=== PATIENT | female | born 1985 | race Caucasian/White ===

== ENCOUNTER → 2019-07-29 16:58 | Outpatient (CLI) | payer OTHER, SELFPAY ==
[2019-07-29 17:21] LABS: Basophils # 0.1 K/mm3 (0-0.2); Basophils % 0.5 % (0.1-2.0); Eosinophils # 0.1 K/mm3 (0.0-0.4); Eosinophils % 0.4 % (0.1-12.0); Hematocrit 51.7 % (37.0-47.0); Hemoglobin 16.7 g/dL (12.2-16.2); Lymphocytes # 3.2 K/mm3 (0.7-4.5); Lymphocytes % 28.6 % (10-50); Mean Corpuscular HGB Conc 32.3 g/dL (31.8-35.4); Mean Corpuscular Hemoglobin 28.3 pg (27.0-31.2); Mean Corpuscular Volume 87.4 fl (81-99); Mean Platelet Volume 7.8 fl (7.4-10.4); Monocytes # 0.7 K/mm3 (0.1-1.0); Monocytes % 6.4 % (1.7-9.3); Neutrophils # 7.2 K/mm3 (1.8-7.8); Platelet Count 268 K/mm3 (142-424); Red Blood Count 5.91 M/mm3 (4.20-5.40); Red Cell Distribution Width 14.6 % (11.5-17.5); White Blood Count 11.3 K/mm3 (4.8-10.8)
[2019-07-29 17:34] LABS: Alanine Aminotransferase 27 U/L (12-78); Albumin Level 4.3 g/dl (3.5-5.0); Albumin/Globulin Ratio 1.4 (1.1-1.8); Alkaline Phosphatase 88 U/L (38-126); Anion Gap 12.2 mEq/L (5-15); Aspartate Amino Transferase 29 U/L (14-36); Bilirubin,Total 0.4 mg/dl (0.2-1.3); Blood Urea Nitrogen 18 mg/dl (7-17); Calcium 10.1 mg/dl (8.4-10.2); Carbon Dioxide 28 mmol/L (22.0-30.0); Chloride 101 mmol/L (98-107); Chol/HDL Ratio 5.7 (1-3.5); Cholesterol 183 mg/dl (140-200); Estimated Glomerular Filt Rate 83 ml/min (>60); GFR (African American) 100 ML/MIN (>60); Glucose 95 mg/dl (74-100); HDL Cholesterol 32 mg/dl (40-60); Potassium 4.2 mmoL/L (3.5-5.1); Sodium 137 mmol/L (136-145); Total Protein,Serum 7.3 g/dl (6.3-8.2); Triglycerides 298 mg/dl (30-150); VLDL Cholesterol 60 mg/dL (0-40)
[2019-07-29 17:45] LABS: Direct LDL Cholesterol 115.47 mg/dL (100-129)
[2019-07-29 17:51] LABS: Free T4 (Free Thyroxine) 1.34 ng/dl (0.78-2.19)
[2019-07-29 18:05] LABS: Thyroid Stimulating Hormone 3.33 uIU/mL (0.465-4.68)
[2019-07-31 11:25] LABS: Vitamin D 25 Hydroxy 12.5 ng/mL (30.0-100.0)
== END ==
LOC: LAB.DROPOF 16:59
PROVIDERS: Visit Provider Emergency Medicine
DX: R51 Headache (principal); E55.9 Vitamin D deficiency, unspecified
CPT/HCPCS: 80053; 80061; 82652; 84439; 84443; 85025

== ENCOUNTER → 2020-08-12 17:12 | Outpatient (CLI) | payer OTHER, SELFPAY ==
[2020-08-12 17:33] LABS: Alanine Aminotransferase 19 U/L (12-78); Albumin Level 4.2 g/dl (3.5-5.0); Albumin/Globulin Ratio 1.4 (1.1-1.8); Alkaline Phosphatase 76 U/L (38-126); Anion Gap 11.9 mEq/L (5-15); Aspartate Amino Transferase 28 U/L (14-36); Basophils # 0.1 K/mm3 (0-0.2); Basophils % 0.8 % (0.1-2.0); Bilirubin,Total 0.5 mg/dl (0.2-1.3); Blood Urea Nitrogen 6 mg/dl (7-17); Calcium 9.7 mg/dl (8.4-10.2); Carbon Dioxide 26 mmol/L (22.0-30.0); Chloride 106 mmol/L (98-107); Chol/HDL Ratio 4.5 (1-3.5); Cholesterol 188 mg/dl (140-200); Eosinophils # 0.1 K/mm3 (0.0-0.4); Eosinophils % 1.3 % (0.1-12.0); Estimated Glomerular Filt Rate 95 ml/min (>60); GFR (African American) 115 ML/MIN (>60); Glucose 89 mg/dl (74-100); HDL Cholesterol 42 mg/dl (40-60); Hemoglobin 15.3 g/dL (12.2-16.2); Lymphocytes # 2.7 K/mm3 (0.7-4.5); Lymphocytes % 27.6 % (10-50); Mean Corpuscular HGB Conc 33.3 g/dL (31.8-35.4); Mean Corpuscular Hemoglobin 30.8 pg (27.0-31.2); Mean Corpuscular Volume 92.6 fl (81-99); Mean Platelet Volume 8.5 fl (7.4-10.4); Monocytes # 0.6 K/mm3 (0.1-1.0); Monocytes % 5.7 % (1.7-9.3); Neutrophils # 6.4 K/mm3 (1.8-7.8); Neutrophils % 64.6 % (37.0-80.0); Platelet Count 260 K/mm3 (142-424); Potassium 4.9 mmoL/L (3.5-5.1); Red Blood Count 4.97 M/mm3 (4.20-5.40); Sodium 139 mmol/L (136-145); Total Protein,Serum 7.2 g/dl (6.3-8.2); Triglycerides 197 mg/dl (30-150); VLDL Cholesterol 39 mg/dL (0-40); White Blood Count 9.9 K/mm3 (4.8-10.8)
[2020-08-12 17:50] LABS: Free T4 (Free Thyroxine) 1.31 ng/dl (0.78-2.19)
[2020-08-12 18:00] LABS: 25-OH Vitamin D, Total 19.7 ng/mL (30-100)
[2020-08-12 18:03] LABS: Thyroid Stimulating Hormone 1.46 uIU/mL (0.465-4.68)
== END ==
LOC: LAB.DROPOF 17:12
PROVIDERS: Visit Provider Emergency Medicine
DX: E66.9 Obesity, unspecified (principal); E55.9 Vitamin D deficiency, unspecified
CPT/HCPCS: 80053; 80061; 82306; 84439; 84443; 85025

== ENCOUNTER → 2020-09-06 10:15 | Outpatient (POV) | payer OTHER, SELFPAY | PROVIDERS: Visit Provider Dermatology | DX: Z00.00 Encounter for general adult medical examination without abnormal findings (principal) ==

== ENCOUNTER → 2020-12-14 14:07 | Outpatient (CLI) | payer OTHER, SELFPAY ==
[2020-12-14 15:33] LABS: HCG,Quantitative 3531 mIU/ml (0-5.42)
== END ==
PROVIDERS: Visit Provider Emergency Medicine
DX: Z34.90 Encounter for supervision of normal pregnancy, unspecified, unspecified trimester (principal); R63.5 Abnormal weight gain
CPT/HCPCS: 84702

== ENCOUNTER → 2022-04-30 22:34 | Outpatient (CLI) | payer BC, SELFPAY | PROVIDERS: Visit Provider Family Medicine | DX: U07.1 COVID-19 (principal); R51.9 Headache, unspecified; R05.9 Cough, unspecified | CPT/HCPCS: C9803; U0003; U0005 ==

== ENCOUNTER → 2022-08-10 23:39 | Outpatient (CLI) | payer BC, SELFPAY ==
[2022-08-10 18:48] LABS: Basophils # 0.1 K/mm3 (0-0.2); Basophils % 1.1 % (0.1-2.0); Eosinophils # 0.1 K/mm3 (0.0-0.4); Eosinophils % 1.3 % (0.1-12.0); Hemoglobin 14.8 g/dL (12.2-16.2); Lymphocytes # 2.1 K/mm3 (0.7-4.5); Lymphocytes % 24.7 % (10-50); Mean Corpuscular HGB Conc 32.2 g/dL (31.8-35.4); Mean Corpuscular Hemoglobin 29.3 pg (27.0-31.2); Mean Corpuscular Volume 91.1 fl (81-99); Mean Platelet Volume 9.4 fl (7.4-10.4); Monocytes # 0.6 K/mm3 (0.1-1.0); Monocytes % 7.2 % (1.7-9.3); Neutrophils # 5.6 K/mm3 (1.8-7.8); Neutrophils % 65.7 % (37.0-80.0); Platelet Count 271 K/mm3 (142-424); Red Blood Count 5.05 M/mm3 (4.20-5.40); Red Cell Distribution Width 14.5 % (11.5-17.5); White Blood Count 8.5 K/mm3 (4.8-10.8)
[2022-08-10 19:03] LABS: Alanine Aminotransferase 19 U/L (12-78); Albumin Level 3.9 g/dl (3.5-5.0); Albumin/Globulin Ratio 1.4 (1.1-1.8); Alkaline Phosphatase 92 U/L (38-126); Anion Gap 9.3 mEq/L (5-15); Aspartate Amino Transferase 23 U/L (14-36); Bilirubin,Total 0.7 mg/dl (0.2-1.3); Blood Urea Nitrogen 10 mg/dl (7-17); Calcium 8.5 mg/dl (8.4-10.2); Carbon Dioxide 27 mmol/L (22.0-30.0); Chloride 103 mmol/L (98-107); Cholesterol 159 mg/dl (140-200); Estimated Glomerular Filt Rate 94 ml/min (>60); GFR (African American) 114 ML/MIN (>60); Globulin 2.7 g/dL (1.3-3.2); Glucose 87 mg/dl (74-100); HDL Cholesterol 32 mg/dl (40-60); Potassium 4.3 mmoL/L (3.5-5.1); Sodium 135 mmol/L (136-145); Total Protein,Serum 6.6 g/dl (6.3-8.2); Triglycerides 251 mg/dl (30-150); VLDL Cholesterol 50 mg/dL (0-40)
[2022-08-10 19:10] LABS: Hemoglobin A1C 4.7 % (4.0-6.0)
[2022-08-10 19:13] LABS: 25-OH Vitamin D, Total 13.1 ng/mL (30-100)
[2022-08-10 19:14] LABS: Direct LDL Cholesterol 90.11 mg/dL (100-129)
[2022-08-10 19:33] LABS: Thyroid Stimulating Hormone 1.85 uIU/mL (0.465-4.68)
== END ==
PROVIDERS: PCP Nurse Practitioner Family; Visit Provider Nurse Practitioner Family
DX: I10 Essential (primary) hypertension (principal); R53.83 Other fatigue; E55.9 Vitamin D deficiency, unspecified
CPT/HCPCS: 80053; 80061; 82306; 83036; 84443; 85025

== ENCOUNTER 2023-12-26 09:05 | Outpatient (CLI) | payer BC, SELFPAY ==
[2023-12-26 19:16] LABS: Basophils # 0.1 K/mm3 (0-0.2); Eosinophils # 0.1 K/mm3 (0.0-0.4); Eosinophils % 1.5 % (0.1-12.0); Hematocrit 45.3 % (37.0-47.0); Lymphocytes # 2.2 K/mm3 (0.7-4.5); Lymphocytes % 24.8 % (10-50); Mean Corpuscular HGB Conc 30.9 g/dL (31.8-35.4); Mean Corpuscular Hemoglobin 29.2 pg (27.0-31.2); Mean Corpuscular Volume 94.3 fl (81-99); Monocytes # 0.5 K/mm3 (0.1-1.0); Monocytes % 5.6 % (1.7-9.3); Neutrophils # 6.1 K/mm3 (1.8-7.8); Neutrophils % 67.2 % (37.0-80.0); Platelet Count 244 K/mm3 (142-424); Red Cell Distribution Width 15.6 % (11.5-17.5)
[2023-12-26 19:30] LABS: Alanine Aminotransferase 22 U/L (12-78); Albumin Level 3.4 g/dl (3.5-5.0); Albumin/Globulin Ratio 1.3 (1.1-1.8); Alkaline Phosphatase 81 U/L (38-126); Anion Gap 9.8 mEq/L (5-15); Aspartate Amino Transferase 22 U/L (14-36); Bilirubin,Total 0.5 mg/dl (0.2-1.3); Blood Urea Nitrogen 15 mg/dl (7-17); Calcium 8.6 mg/dl (8.4-10.2); Carbon Dioxide 26 mmol/L (22.0-30.0); Chloride 108 mmol/L (98-107); Chol/HDL Ratio 4.4 (1-3.5); Cholesterol 142 mg/dl (140-200); Estimated Glomerular Filt Rate 94 ml/min (>60); GFR (African American) 113 ML/MIN (>60); Globulin 2.7 g/dL (1.3-3.2); Glucose 77 mg/dl (74-100); HDL Cholesterol 32 mg/dl (40-60); Potassium 3.8 mmoL/L (3.5-5.1); Sodium 140 mmol/L (136-145); Total Protein,Serum 6.1 g/dl (6.3-8.2); Triglycerides 169 mg/dl (30-150); VLDL Cholesterol 34 mg/dL (0-40)
[2023-12-26 19:41] LABS: 25-OH Vitamin D, Total 13.6 ng/mL (30-100)
[2023-12-26 19:43] LABS: Free Thyroxine Index 3.8 ug/dL (5.93-13.13); T4 (Thyroxine) 12.3 ug/dl (5.53-11.0); Triiodothryronine (T3) Uptake 31 % (23.5-40.5)
[2023-12-26 19:45] LABS: Direct LDL Cholesterol 71.33 mg/dL (100-129)
[2023-12-26 19:56] LABS: Thyroid Stimulating Hormone 1.32 uIU/mL (0.465-4.68)
[2023-12-26 20:06] LABS: Thyroid Stimulating Hormone 1.33 uIU/mL (0.465-4.68)
[2023-12-26 21:37] LABS: Hemoglobin A1C 4.9 % (4.0-6.0)
[2023-12-26 22:16] LABS: Vitamin B12 334 pg/mL (239-931)
[2023-12-26 22:25] LABS: Iron 50 ug/dL (37-170)
== END 2023-12-26 23:59 | disposition home or self-care (01) ==
LOC: LAB.DROPOF 12-28 18:50
PROVIDERS: PCP Family Medicine; Visit Provider Family Medicine
DX: R53.83 Other fatigue (principal); E66.01 Morbid (severe) obesity due to excess calories; Z68.44 Body mass index [BMI] 60.0-69.9, adult
CPT/HCPCS: 80050; 80053; 80061; 82306; 82607; 83036; 83540; 84436; 84443; 84479; 85025

== ENCOUNTER 2024-04-20 09:35 | Outpatient (CLI) | payer BC, SELFPAY ==
[2024-04-20 19:29] LABS: Triiodothryronine (T3) Uptake 33 % (23.5-40.5)
[2024-04-20 19:30] LABS: 25-OH Vitamin D, Total 16.4 ng/mL (30-100)
[2024-04-20 19:42] LABS: Thyroid Stimulating Hormone 1.09 uIU/mL (0.465-4.68)
== END 2024-04-20 23:59 | disposition home or self-care (01) ==
LOC: LAB.DROPOF 04-21 15:18
PROVIDERS: PCP Family Medicine; Visit Provider Family Medicine
DX: E55.9 Vitamin D deficiency, unspecified (principal); R79.89 Other specified abnormal findings of blood chemistry
CPT/HCPCS: 82306; 84436; 84443; 84479

== ENCOUNTER 2025-01-14 14:33 | Outpatient (CLI) | payer BC, SELFPAY ==
[2025-01-14 19:24] LABS: Coronavirus 19, PCR Not Detected (NotDetected); Influenza A, PCR Not Detected (NotDetected); Influenza B, PCR Not Detected (NotDetected)
--- OUTSIDE RECORDS SUMMARY | 2025-01-18 09:22 | XMS_ITS | Clinical Summary ---
Author Organization [facility] Address [address] [place] [address] Care Team Providers Care Jewel Bearing Grinder Name Role Phone Jamari Fiore MD Primary Care Provider + [phone] Allergies No known active allergies Medications citalopram (CeleXA) 20 MG tablet Take 1 tablet (20 mg) by mouth 1 (one) time each day. 11/23/2020 Active D3 High Potency 50 MCG (2000 UT) capsule Take by mouth 1 (one) time each day. 01/10/2024 Active dexamethasone (Decadron) 1 MG tablet Take 2 tablets when directed 2 tablet 02/10/2024 Active Active Problems Problem Noted Date Diagnosed Date Chronic hypertension 11/14/2021 Assessment & Plan (01/25/2022 9:58 AM EDT): - blood pressure elevated today - Nifedipine 30 XL q day - not taking consistently. She did take it this morning. Increase to 60 XL q day. Assessment & Plan (11/14/2021 10:48 AM EDT): - blood pressure elevated today - Nifedipine 30 XL q day - not taking consistently. She did take it this morning. Increase to 60 XL q day. Failed induction of labor 08/18/2021 Weight loss counseling, encounter for 08/18/2021 Assessment & Plan (01/25/2022 9:59 AM EDT): - BP more controlled today - continue Nifedipine -pt had 5lb wt loss since last visit - discussed continuing phentermine - she is interested. - phentermine Rx sent - RTC 1 month Assessment & Plan (12/20/2021 2:36 PM EDT): - BP more controlled today - continue Nifedipine - discussed phentermine - she is interested. Discussed dry mouth and heart palpitations as side effect. Discussed 6-8 pound weight loss in 1st month and 1- 2 pounds each additional month. Discussed that it is controlled substance and need for monthly appointment. - phentermine Rx sent - RTC 1 month Assessment & Plan (11/14/2021 10:52 AM EDT): - discussed bariatrics consult - her insurance does not cover - I discussed that the only medication I have prescribed is phentermine and that I cannot prescribe it was her blood pressure as high as it is. - We discussed that if we get it better controlled, we could potentially prescribe phentermine. Assessment & Plan (09/18/2021 1:12 PM EDT): - normal visit - BP normal with Nifedipine - continue Nifed 30 XL q day. She likely has chronic HTN - mood stable - pap done today - counseled about different contraception options - desires Mirena - placed today - RTC as needed Assessment & Plan (08/18/2021 10:09 AM EDT): - normal exam today - incision looks great! - mood stable - RTC in 4 weeks for full exam, pap, and to discuss contraception 37 weeks gestation of 06/29/2021 Assessment & Plan (07/31/2021 9:40 AM EDT): - GBS positive - continue PNV and baby ASA - IOL 08/01 PM Assessment & Plan (07/27/2021 12:36 PM EDT): - labs reviewed, GBS positive - continue PNV and baby ASA - Prelim growth US today: vertex, posterior placenta, EFW 80%, AC 94%, normal AF and dopplers. BPP 12/18 - IOL 08/01 PM - consents signed today - RTC for NST next week Assessment & Plan (07/24/2021 9:56 AM EDT): - labs reviewed, GBS positive - continue PNV and baby ASA - growth US 317 - RTC for 2x weekly NST and routine visit Assessment & Plan (07/20/2021 12:53 PM EST): - GBS today - continue PNV and baby ASA - growth US 317 - RTC for 2x weekly NST and routine visit Assessment & Plan (07/17/2021 9:51 AM EST): - continue PNV and baby ASA - growth US 3/17 - GBS next visit - RTC for 2x weekly NST and routine visit Assessment & Plan (07/13/2021 8:50 AM EST): - growth US 07/27 - continue PNV and baby ASA - GBS at 36 weeks - discussed IOL methods today - RTC for 2x weekly NST and routine visit Assessment & Plan (07/10/2021 9:39 AM EST): - labs reviewed - growth US 17 - continue PNV and baby ASA - GBS at 36 weeks - RTC for 2x weekly NST and routine visit Assessment & Plan (07/06/2021 12:26 PM EST): - labs reviewed - growth US 07/27 - continue PNV and baby ASA - RTC for 2x weekly NST and routine visit Assessment & Plan (07/03/2021 10:22 AM EST): - labs reviewed - next growth US 3/17 - continue PNV and baby ASA - RTC for 2x weekly NSTs and routine visit Assessment & Plan (06/29/2021 1:06 PM EST): - labs reviewed - Growth US today: EFW 65%, AC 74%, normal fluid - repeat growth US in 4 weeks - continue PNV and baby ASA - RTC for 2x weekly NSTs and routine visits Gestational hypertension wit h significant proteinuria, 05/31/2021 Assessment & Plan (08/18/2021 10:08 AM EDT): - MR BP today - discussed to continue to try to take Nifedipine daily Assessment & Plan (07/31/2021 9:39 AM EDT): - normal BP today - continue baby ASA - IOL tomorrow 323 PM Assessment & Plan (07/27/2021 12:36 PM EDT): - MR BP today - IOL 08/01 - Prelim growth US today: vertex, posterior placenta, EFW 80%, AC 94%, normal AF and dopplers. BPP 12/18 - continue baby ASA - RTC next week for NST Assessment & Plan (07/24/2021 9:55 AM EDT): - normal BP today - continue baby ASA - IOL 08/01 Assessment & Plan (07/20/2021 12:52 PM EST): - normal BP today - continue baby ASA - IOL 08/01 Assessment & Plan (07/17/2021 9:50 AM EST): - normal BP today - continue baby ASA - IOL 08/01 Assessment & Plan (07/13/2021 8:49 AM EST): - normal BP today - Continue baby ASA and 2x weekly NSTs - continue q 4 week growth US - IOL 08/01 Assessment & Plan (07/10/2021 9:38 AM EST): - MR BP today, UA negative protein - continue baby ASA - continue q 4 week growth US and 2x weekly NSTs - desires IOL 08/01 38w2d Assessment & Plan (07/06/2021 12:26 PM EST): - normal BP today - continue baby ASA - continue q 4 week growth US and 2x weekly NSTs - will plan for 37-38 week IOL - desires 08/01 - will schedule Assessment & Plan (07/03/2021 10:21 AM EST): - normal BP today - continue baby ASA - continue q 4 week growth US and 2x weekly NSTs - we discussed timing of delivery with GHTN - we discussed that delivery is recommended ~ 37 weeks to decrease maternal morbidity secondary to severe range blood pressures and pre-eclampsia. We discussed that evidence showed that babies do as well at 37 weeks as they do at 39 weeks. We also discussed that IOL could take longer at 37 weeks and that the rate of c/s is increased. She will talk with this weekend and we will discuss delivery timing more next week. Assessment & Plan (06/29/2021 1:04 PM EST): - MR BP with normal repeat - continue baby ASA - continue q 4 week growth US and 2x weekly NSTs Assessment & Plan (06/26/2021 2:02 PM EST): - normal BP today - continue growth US and surveillance Assessment & Plan (05/31/2021 10:08 AM EST): - mild range BP today, no protein in urine - continue baby ASA - q month growth US and NSTs 2x weekly at 32 weeks Advanced maternal age in [facility], unspecified trimester 02/02/2021 Assessment & Plan (07/17/2021 9:50 AM EST): Continue baby ASA and 2x weekly NSTs Assessment & Plan (07/13/2021 8:50 AM EST): - Continue baby ASA and 2x weekly NSTs Assessment & Plan (06/29/2021 1:05 PM EST): - continue growth US and NSTs Assessment & Plan (06/26/2021 2:01 PM EST): Continue baby ASA and 2x weekly NSTs Growth US 06/29 Assessment & Plan (05/31/2021 10:06 AM EST): - continue baby ASA - will start NSTs 2x weekly at 32 weeks - continue growth US Assessment & Plan (03/29/2021 2:05 PM EST): Morbid obesity 01/04/2021 Depression 01/04/2021 Assessment & Plan (11/14/2021 10:50 AM EDT): Psychological condition is worsening. She has an appointment scheduled with her provider that prescribes her medication soon. Rec that she may need dose adjustment vs. Starting prozac again. Would like options for counseling - list of therapy locations provided to patient. We discussed that if she has thoughts of self harm or harm to others, to immediately remove herself from the situation, call 911, call her mother, go to the emergency room, or to call our office. She understands and has no intentions of harm to herself or others at the point. Resolved Problems Problem Noted Date Diagnosed Date Resolved Date 32 weeks gestation of 02/01/2021 06/29/2021 Assessment & Plan (06/29/2021 1:05 PM EST): Assessment & Plan (06/26/2021 2:01 PM EST): Labs reviewed Continue baby ASA and 2x weekly NSTs Growth US 06/29 Continue PNV RTC for US Assessment & Plan (05/31/2021 10:07 AM EST): - Prelim growth US today: vertex, EFW 62%, AC 50%, ELVIRA 14, normal dopplers, BPP 8/8 - labs reviewed - Tdap and Rhogam today - continue baby ASA and PNV - growth US ordered for 1 month - start NSTs at 32 weeks - RTC 3 weeks Assessment & Plan (04/28/2021 11:46 AM EST): - nml yfn US - glucola and CBC today - continue PNV and baby ASA - growth US ordered to complete anatomy - Tdap and Rhogam at next visit - echo 05/16/21 - RTC 4 weeks Assessment & Plan (03/29/2021 2:40 PM EST): - yfn US prelim read normal - will need follow up yfn for heart views - rec wrist bracing at night for hand swelling/carpal tunnel - continue PNV and baby ASA - glucola given for next apt - RTC 4 weeks Assessment & Plan (03/01/2021 10:38 AM EDT): - FTS increased risk of Down Syndrome - NIPT low risk female - continue PNV and baby ASA - schedule anatomy US today - RTC 4 weeks Assessment & Plan (02/01/2021 12:41 PM EDT): - labs reviewed, O negative - GBS bacteruria - s/p treatment - Normal NT today, will do FTS bloodwork. Does desire NIPT - will get prior auth - start Baby ASA for pre-eclampsia prevention - discussed AMA and need for NSTs starting at 32-34 weeks - flu shot today - anatomy US ordered today - RTC 4 weeks Immunizations Immunization Administration Dates Next Due Influenza, injectable, quadr ivalent, preservative free, pediatric 02/01/2021 Rho (D) Immune Globulin 05/31/2021 Tdap 05/31/2021 Social History Tobacco Use Types Packs/Day Years Used Date Smoking Tobacco: Never Smokeless Tobacco: Never Tobacco Cessation:Counseling Given: Not Answered Alcohol Use Standard Drinks/Week Comments Never 0 (1 standard drink = 0.6 oz pur e alcohol) [place] Depression Scale Answer Date Recorded [place] Depression Scale Total 6 09/18/2021 The thought of harming myself has occurred to me . Never 09/18/2021 Comments No Sex and Gender Information Value Date Recorded Sex Assigned at Female 04/28/2021 10:24 AM EST Legal Sex Female 11:04 AM EDT Gender Identity Female 04/28/2021 10:24 AM EST Sexual Orientation Straight 04/28/2021 10 :24 AM EST Last Filed Vital Signs Vital Sign Reading Time Taken Comments Blood Pressure 142/87 02/10/2024 9:32 AM EDT Pulse 88 02/10/2024 9:32 AM EDT Temperature - - Respiratory Rate - - Oxygen Saturation - - Inhaled Oxygen Concentration - - Weight 186 kg (410 lb 0.9 oz) 02/10/2024 9:32 AM EDT Height 175.3 cm (5' 9 ) 02/10/2024 9:32 AM EDT Body Mass Index 60.55 02/10/2024 9:32 AM EDT Plan of Treatment Health Maintenance Due Date Last Done Comments [facility]-Infant/Child/Adol SDOH Screenings 1985 [facility]-Varicella Vaccines (1 of 2 - 13+ 2-dose series) 1998 [facility]- SDOH Screenings 07/31/2003 [facility]-Adult SDOH Screenings 07/31/2003 [facility]-Hepatitis B Vaccines (1 of 3 - 19+ 3-dose series) 2004 HPV Vaccines (1 - 3-dose SCD M series) 2012 [facility]-Depression Screening 09/18/2022 09/18/2021 [id number] Vaccine (2 - season) 2024 07/28/2020 [facility]-Pap Smear 09/18/2024 09/18/2021 [facility]-Influenza Vaccine (#1) 2025 02/01/2021 [facility]-Cervical Cancer Screening 09/18/2026 [facility]-HPV/Cotest 09/18/2026 09/18/2021, 09/18/2021 [facility]-DTaP,Tdap,and Td Vaccine s (2 - Td or Tdap) 05/31/2031 05/31/2021 [facility]-Zoster Vaccines (1 of 2) 07/31/2035 [facility]-HIV Screening Completed 01/04/2021 [facility]-Hepatitis C Screening Completed 01/04/2021 [facility]-Obesity Intervention Completed 02/10/2024 [facility]-HIB Vaccines Aged Out No longer e ligible based on patient's age to complete this topic [facility]-Hepatitis A Vaccines Aged Out No longer eligible based on patient's age to complete this topic [facility]-IPV Vaccines Aged Out No longer e ligible based on patient's age to complete this topic [facility]-Pneumococcal Vaccine: Pediatrics (0 to 5 Years) and At-Risk Patients (6 to 49 Years) Aged Out No longer eligible b ased on patient's age to complete this topic [facility]-Rotavirus Vaccines Aged Out No lo nger eligible based on patient's age to complete this topic Procedures Procedure Name Priority Date/Time Associated Diagnosis Comments PAP TEST - CYTOLOGY Routine 09/18/2021 1 1:31 AM EDT Encounter for gynecological examination without abnormal finding HEPATITIS C ANTIBODY W/REFLEX TO HCV QUANT PCR Routine 01/04/2021 2:27 PM EDT Unsure of LMP (last menstrual period) as reason for ultrasound scan HIV 1/2 ANTIBODY/ANTIGEN SCREEN WITH REFLEX TO HIV I/II DIFFERENTIATION Routine 01/04/2021 2:27 PM EDT Unsure of LMP (last menstrual period) as reason for ultrasound scan from Last 3 Months or Most Recently Relevant to Health Maintenance Results * (ABNORMAL) Pap Smear (09/18/2021 11:31 AM EDT) Case Report Cytology Case: [id number] Authorizing Provider: Karey Gordillo MD Collected: 09/18/2021 1131 Ordering Location: Obstetrics & Gynecology Received: 09/19/2021 0854 First Screen: Ana Loza Rescreen: YOLANDA An Pathologist: Guillermina Mayorga MD Specimen: ThinPrep Pap Test, Liquid-Based Cervical/Vaginal, CERVICAL/VAGINAL 09/22/2021 10:22 AM EDT [facility] Interpretation LOW GRADE SQUAMOUS INTRAEPITHELIAL LESION (LSIL)(A) 09/22/2021 10:22 AM EDT [facility] at 1022 EDT Other Findings Fungal organisms consistent with Meri species. 09/22/2021 10:22 AM EDT [facility] Specimen Adequacy Satisfactory for evaluation; endocervical/arboleda sformation zone component present. Slide imaged by the ThinPrep Imaging system and selected 22 paula reviewed then full manual screening. 09/22/2021 10:22 AM EDT [facility] Cervical cytology is a screening test primarily for squamous cancers and precursors and has associated false negative and positive results. New technologies such as liquid based sampling may decrease but will not eliminate all false negative results. Regular screening and follow-up of unexplained clinical signs and symptoms are recommended to minimize false negative results. Please see the ASCCP website (www.asccp.org)fo r followup recommendations. If HPV testing was requested, correlation with the results is suggested (please call Microbiology at [phone] for results). 09/22/2021 10:22 AM EDT [facility] Menstrual Status Post- 022 10:22 AM EDT [facility] History of Hysterectomy Not Applicable 09/22/2021 10:22 AM EDT [facility] Contraceptive History Not Applicable 09/22/2021 10:22 AM EDT [facility] Screening Type Routine Screen 2021 10:22 AM EDT [facility] High Risk? No 09/22/2021 10:22 AM EDT [facility] HPV Testing Requested? Request HPV Testing Regardless of Pap Test Findings 09/22/2021 10:22 AM EDT [facility] Previous Cancer History No 09/22/2021 10:22 AM EDT [facility] Clinical Information Z01.419 - Encounter for gynecological examination without abnormal finding [ICD-10-CM] 09/22/2021 10:22 AM EDT [facility] Last Menstrual Period 11/09/2020 09/22/2021 10:22 AM EDT [facility] Swab Vaginal and cervical cytologic material / Unknown Non-blood Collection / Unknown 09/18/2021 11:31 AM EDT 09/19/2021 8:54 AM EDT Karey Gordillo MD LAB CYTOLOGY ORDERABLES Final Result Performing Organization Address City/[facility]/ZIP Co de Phone Number [facility] [address] [place] [address] * HIV 1 & 2 Antibody/Antigen Screen (01/04/2021 2:27 PM EDT) HIV 1 & 2 Antibody/Anti gen Screen Nonreactive Nonreactive 01/04/2021 2:27 PM EDT [facility] Blood Venous blood specimen / Unknown 01/04/2021 1:01 PM EDT us Pierce Gates MD LAB BLOOD ORDERABLES Final Resu lt Performing Organization Address City/[facility]/ZIP Co de Phone Number [facility] [address] [place] [address] * Hepatitis C Antibody (01/04/2021 2:27 PM EDT) Hepatitis C Antibody Negative Negative 01/04/2021 2:27 PM EDT [facility] Blood Venous blood specimen / Unknown 01/04/2021 1:01 PM EDT us Pierce Gates MD LAB BLOOD ORDERABLES Final Resu lt [facility] [address] [place] [address] from Last 3 Months or Most Recently Relevant to Health Maintenance Insurance PAUL[employer] Care Teams Jewel Bearing Grinder Relationship Specialty Start Date End Date Jamari Fiore MD [address] [place] [address] PCP - General 05/16/21
== END 2025-01-14 23:59 ==
LOC: LAB.DROPOF 01-18 09:07
PROVIDERS: PCP Family Medicine; Visit Provider Family Medicine
DX: R69 Illness, unspecified (principal)
CPT/HCPCS: 87636

== ENCOUNTER 2025-04-27 14:00 | Emergency (ER) | payer BC, SELFPAY ==
--- OUTSIDE RECORDS SUMMARY | 2024-12-12 04:00 | XMS_ITS ---
Author Organization [facility] Address [address] [place] [address] Phone [phone] Care Team Providers Care Nougat Cutter Machine Name Role Phone Batool Whitley Unavailable [phone] Migration, Provider Unavailable Unavailable REASON FOR VISIT EMR-Alejo Encounters Encounter Location Date Provider Diagnosis [address] [address] 12/12/2024 Provider Migration Plan Of Treatment No Information Progress Notes * BASILIO ROBERTSANAOB:1985 (39 yo F)Acc No.[id number]:12/12/2024 Patient: CELESTINO KELLY :1985 A ge:39 Y S ex:Female Address:[address] [place] [facility] [address] [place], [address] Subjective: * Chief Complaints: * E MR-Alejo * * Date:
--- OUTSIDE RECORDS SUMMARY | 2024-12-13 04:00 | XMS_ITS ---
Author Organization [facility] Address [address] [place] [address] Phone [phone] Care Team Providers Care Tire Fabric Impregnating Range Tender Name Role Phone Batool Whitley Unavailable [phone] Migration, Provider Unavailable Unavailable REASON FOR VISIT EMR-[facility] Medications Medication SIG (Take, Route, Frequency, Duration) Notes Start Date End Date Status Citalopram Hydrobromide 10 MG Tablet Oral Active VITAMIN D2 1,250 MCG (50,000 UNIT) CAPSULE *Reorder from [facility] for eRx and Interaction Alerts* Active Azithromycin 250 MG Tablet Oral Active Ondansetron 4 MG Tablet Disintegrating Oral Active Citalopram Hydrobromide 20 MG Tablet Oral Active buPROPion HCl 75 MG Tablet Oral Active BROMPHENIRAMINE-PSEUDO EPHEDRINE-DM 2 MG-30 MG-10 MG/5 ML ORAL SYRUP *Reorder from [facility] for eRx and Interaction Alerts* Active predniSONE 20 MG Tablet Oral Active Ventolin HFA 108 (90 Base) MCG/ACT Aerosol Solution Inhalation Active Social History Social History Additional Details Category Social Info Options Details Migrated Social History Migrated Social History Tobacco Years: Former smoker 03/15/2020,Smoking Status: 5 03/15/2020 Encounters Encounter Location Date Provider Diagnosis [facility] [address] [place] [address] 12/13/2024 Provider Migration Plan Of Treatment No Information Progress Notes * ROBERTSBASILIOANAOB:1985 (39 yo F)Acc No.[id number]:12/13/2024 Patient: CELESTINO KELLY :1985 A ge:39 Y S ex:Female Address:[address] [place] [address] [place], [address] Subjective: * Chief Complaints: * E MR-Alejo * Social History: M igrated Social History: M igrated Social History: Tobacco Years: Former smoker 03/15/2020,Smoking Status: 5 03/15/2020. * Medications: T akingCitalopram Hydrobromide 10 MG Tablet Oral buPROPion HCl 75 MG Tablet Oral predniSONE 20 MG Tablet Oral Ventolin HFA 108 (90 Base) MCG/ACT Aerosol Solution Inhalation [id number] 2 MG-30 MG-10 MG/5 ML ORAL SYRUP , Notes to Pharmacist: *Reorder from [facility] for eRx and Interaction Alerts*Azithromycin 250 MG Tablet Oral Citalopram Hydrobromide 20 MG Tablet Oral Ondansetron 4 MG Tablet Disintegrating Oral VITAMIN D2 1,250 MCG (50,000 UNIT) CAPSULE , Notes to Pharmacist: *Reorder from [facility] for eRx and Interaction Alerts*Taking Citalopram Hydrobromide 10 MG Tablet Oral Taking buPROPion HCl 75 MG Tablet Oral Taking predniSONE 20 MG Tablet Oral Taking Ventolin HFA 108 (90 Base) MCG/ACT Aerosol Solution Inhalation Taking [id number] 2 MG-30 MG-10 MG/5 ML ORAL SYRUP , Notes to Pharmacist: *Reorder from [facility] for eRx and Interaction Alerts*Taking Azithromycin 250 MG Tablet Oral Taking Citalopram Hydrobromide 20 MG Tablet Oral Taking Ondansetron 4 MG Tablet Disintegrating Oral Taking VITAMIN D2 1,250 MCG (50,000 UNIT) CAPSULE , Notes to Pharmacist: *Reorder from [facility] for eRx and Interaction Alerts* * * Date:
[2025-04-27 14:08] VITALS: BP 177/106; PULSE 91; O2SAT 92
--- OUTSIDE RECORDS SUMMARY | 2025-04-27 14:09 | XMS_ITS | Patient Health Record ---
Author Organization [facility] Address [address] [place] [address] Phone [phone] Care Team Providers Care Hand Zipper Trimmer Name Role Phone Batool Whitley Unavailable [phone] Migration, Provider Unavailable Unavailable Reason For Referral No Information Medications Medication SIG (Take, Route, Frequency, Duration) Notes Start Date End Date Status Citalopram Hydrobromide 10 MG Tablet Oral Active buPROPion HCl 75 MG Tablet Oral Active BROMPHENIRAMINE-PSEUDO EPHEDRINE-DM 2 MG-30 MG-10 MG/5 ML ORAL SYRUP *Reorder from [employer] for eRx and Interaction Alerts* Active VITAMIN D2 1,250 MCG (50,000 UNIT) CAPSULE *Reorder from [employer] for eRx and Interaction Alerts* Active predniSONE 20 MG Tablet Oral Active Ventolin HFA 108 (90 Base) MCG/ACT Aerosol Solution Inhalation Active Azithromycin 250 MG Tablet Oral Active Ondansetron 4 MG Tablet Disintegrating Oral Active Citalopram Hydrobromide 20 MG Tablet Oral Active Social History Social History Additional Details Category Social Info Options Details Migrated Social History Migrated Social History Tobacco Years: Former smoker 03/15/2020,Smoking Status: 5 03/15/2020 Problems Problem Type SNOMED Code ICD Code Onset Dates Problem Status W/U Status Risk Notes Problem History of suspected exposure to biological agent ([id number] ) Encounter for observation for suspected exposure to other biological agents ruled out (Z03.818) 0 Active confirmed Encounters Encounter Location Date Provider Diagnosis [facility] [address] [place] [address] 12/12/2024 Provider Migration [address] [address] 12/13/2024 Provider Migration Plan Of Treatment No Information Insurance Providers Payer Name Payer Address Payer Phone Subscriber Number Group Number Insured Name Patient Relationship to Insured Coverage Start Date Coverage End Date [facility] [address] [place] [address] [id number] CELESTINO ROBERTS Self - patient is the insured
--- OUTSIDE RECORDS SUMMARY | 2025-04-27 14:10 | XMS_ITS | Clinical Summary ---
Author Organization [facility] Address [address] [place] [address] Care Team Providers Care [employer] Salesperson Name Role Phone Jamari Fiore MD Primary Care Provider + [phone] Allergies No known active allergies Medications citalopram [...] full exam, pap, and to discuss contraception Gestational hypertension wit h significant proteinuria, 05/31/2021 Assessment & Plan (08/18/2021 10:08 AM EDT): - MR BP today - discussed to continue to try to take Nifedipine daily Assessment & Plan (07/31/2021 9:39 AM EDT): - normal BP today - continue baby ASA - IOL tomorrow 08/02 PM Assessment & Plan (07/27/2021 12:36 PM [...] at 32 weeks Advanced [facility], unspecified trimester 02/02/2021 Assessment & Plan (07/17/2021 [...] Problem Noted Date Diagnosed Date Resolved Date 37 weeks gestation of 06/29/2021 01/31/2025 Assessment & Plan (07/31/2021 9:40 AM EDT): [...] PNV and baby ASA - growth US 07/27 - RTC for 2x weekly NST and routine visit Assessment & Plan (07/20/2021 12:53 PM EST): - GBS today - continue PNV and baby ASA - growth US 07/27 - RTC for 2x weekly NST and routine visit Assessment & Plan (07/17/2021 9:51 AM EST): - continue PNV and baby ASA - growth US / - GBS next visit - RTC for [...] - labs reviewed - next growth US 07/27 - continue PNV and baby ASA - RTC for 2x weekly NSTs and routine visit Assessment & Plan (06/29/2021 1:06 PM EST): - labs reviewed - Growth US today: EFW 65%, AC 74%, normal fluid - repeat growth US in 4 weeks - continue PNV and baby ASA - RTC for 2x weekly NSTs and routine visits 32 weeks gestation of 02/01/2021 06/29/2021 Assessment & Plan (06/29/2021 1:05 PM EST): Assessment & Plan (06/26/2021 2:01 PM EST): Labs reviewed Continue baby ASA and 2x weekly NSTs Growth US 06/29 Continue PNV RTC for US Assessment & Plan (05/31/2021 10:07 AM EST): - Prelim growth US today: vertex, EFW 62%, AC 50%, ELVIRA 14, normal dopplers, BPP 12/18 - labs reviewed - Tdap and Rhogam [...] drink = 0.6 oz pur e alcohol) [place] Depression Scale Answer Date Recorded [place] Depression Scale Total 6 09/18/2021 The thought [...] 02/10/2024 9:32 AM EDT Plan of Treatment Upcoming Encounters Date Type Department Care Team (Late st Contact Info) Description 05/03/2025 10:30 AM EST Office Visit Obstetrics & Gynecology [address] [place] [address] Pierce Gates MD [address] [place] [address] Health Maintenance Due Date Last Done Comments [facility]-/Child/Adol SDOH Screenings 1985 [facility]-Varicella Vaccines (1 of 2 - 13+ 2-dose series) 1998 [facility]- SDOH Screenings 07/31/2003 [facility]-Adult SDOH Screenings 07/31/2003 [facility]-Hepatitis B Vaccines (1 of 3 - 19+ 3-dose series) 2004 [facility]-Depression Screening 09/18/2022 09/18/2021 [facility]-Pap Smear 09/18/2024 09/18/2021 [id number] Vaccine (2 - 2024- season) 2025 07/28/2020 [facility]-Influenza Vaccine (#1) 2025 02/01/2021 [facility]-Cervical Cancer Screening 09/18/2026 [facility]-HPV/Cotest 09/18/2026 09/18/2021, 09/18/2021 [facility]-DTaP,Tdap,and Td Vaccine s (2 - Td or Tdap) 05/31/2031 05/31/2021 [facility]-Zoster Vaccines (1 of 2) 07/31/2035 [facility]-HIV Screening Completed 01/04/2021 [facility]-Hepatitis C Screening Completed 01/04/2021 [facility]-Obesity Intervention Completed 02/10/2024 HPV Vaccines (No Doses Required) Completed [facility]-HIB Vaccines Aged Out No longer e [...] 11:31 AM EDT) Case Report Cytology Case: [id number] Authorizing Provider: Karey Gordillo MD Collected: 09/18/2021 1131 Ordering Location: Obstetrics & Gynecology Received: 09/19/2021 0854 First Screen: Ana Loza Rescreen: YOLANDA An Pathologist: Guillermina Mayorga MD Specimen: ThinPrep Pap Test, Liquid-Based Cervical/Vaginal, CERVICAL/VAGINAL 09/22/2021 10:22 AM EDT [facility] Interpretation LOW GRADE SQUAMOUS INTRAEPITHELIAL LESION (LSIL)(A) 09/22/2021 10:22 AM EDT [facility] at 1022 EDT Other Findings Fungal organisms consistent with Meri species. 09/22/2021 10:22 AM EDT [facility] Specimen Adequacy Satisfactory for evaluation; endocervical/arboleda sformation zone component present. Slide imaged by the ThinPrep Imaging system and selected 22 paula reviewed then full manual screening. 09/22/2021 10:22 AM EDT [facility] Cervical cytology is a screening test [...] results is suggested (please call Microbiology at [phone] for results). 09/22/2021 10:22 AM EDT [facility] Menstrual Status Post- 022 10:22 AM EDT [facility] History of Hysterectomy Not Applicable 09/22/2021 10:22 AM EDT [facility] Contraceptive History Not Applicable 09/22/2021 10:22 AM EDT [facility] Screening Type Routine Screen 2021 10:22 AM EDT [facility] High Risk? No 09/22/2021 10:22 AM EDT [facility] HPV Testing Requested? Request HPV Testing Regardless of Pap Test Findings 09/22/2021 10:22 AM EDT [facility] Previous Cancer History No 09/22/2021 10:22 AM EDT [facility] Clinical Information Z01.419 - Encounter for gynecological examination without abnormal finding [ICD-10-CM] 09/22/2021 10:22 AM EDT [facility] Last Menstrual Period 11/09/2020 09/22/2021 10:22 AM EDT [facility] Swab Vaginal and cervical cytologic material / Unknown Non-blood Collection / Unknown 09/18/2021 11:31 AM EDT 09/19/2021 8:54 AM EDT us Karey Gordillo MD LAB CYTOLOGY ORDERABLES Final Result [facility] [address] [place] [address] * HIV 1 & 2 Antibody/Antigen Screen (01/04/2021 2:27 PM EDT) HIV 1 & 2 Antibody/Anti gen Screen Nonreactive Nonreactive 01/04/2021 2:27 PM EDT [facility] Blood Venous blood specimen / Unknown 01/04/2021 1:01 PM EDT Result Meagan Gates MD LAB BLOOD ORDERABLES Final Resu lt Performing Organization Address City/[facility]/ZIP Co de Phone Number [facility] [address] [place] [address] * Hepatitis C Antibody (01/04/2021 2:27 PM EDT) Hepatitis C Antibody Negative Negative 01/04/2021 2:27 PM EDT [facility] Blood Venous blood specimen / Unknown 01/04/2021 1:01 PM EDT Result Meagan Gates MD LAB BLOOD ORDERABLES Final Resu Performing Organization Address [facility] Co de Phone Number [facility] [address] [place] [address] from Last 3 Months or Most Recently Relevant to Health Maintenance Insurance PAULY Care Teams [employer] Salesperson Relationship Specialty Start Date End Date Jamari Fiore MD [phone] [phone] PCP - General 05/16/21
--- NOTE | 2025-04-27 14:11 | CT_ITS ---
PROCEDURE INFORMATION: Exam: CT Abdomen And Pelvis With Contrast Exam date and time: 04/27/2025 3:18 PM Age: 39 years old Clinical indication: Abdominal pain; Additional info: Ruq, rlq, suprapubic tenderness TECHNIQUE: Imaging protocol: Computed tomography of the abdomen and pelvis with contrast. Radiation optimization: All CT scans at this facility use at least one of these dose optimization techniques: automated exposure control; mA and/or kV adjustment per patient size (includes targeted exams where dose is matched to clinical indication); or iterative reconstruction. Contrast material: ISOVUE; Contrast volume: 88 ml; Contrast route: IV; COMPARISON: No relevant prior studies available. FINDINGS: Limitations: Significant attenuation artifact limits evaluation Lungs: Small calcified granuloma of the anterior left lung base. Small calcified granuloma within the periphery of the right lower lobe. These are benign. Lung bases otherwise appear unremarkable. Pleural spaces: No significant pleural effusion. No pneumothorax. Heart: No cardiomegaly or pericardial effusion. Liver: Hepatomegaly. Diffuse decreased density throughout the liver in keeping with hepatic steatosis. No suspicious mass or lesion within the liver. 4 mm calcification within the periphery of the right lobe of the liver. This is benign. Gallbladder and biliary ducts: Gallbladder appears partially contracted. Gallbladder otherwise appears unremarkable. No intrahepatic ductal dilatation. Common bile duct is not well visualized. Common bile duct is not appear dilated. Pancreas: Questionable minimal stranding within the peripancreatic fat adjacent to the head of the pancreas. Artifact limits evaluation. No suspicious mass or lesion within the pancreas. No dilatation of the pancreatic duct. Spleen: The spleen is unremarkable. Adrenal glands: The adrenal glands are unremarkable. Kidneys and ureters: Right kidney is unremarkable as visualized. No mass or stone seen. No hydronephrosis. Left kidney is unremarkable as visualized. No mass or stone seen. No hydronephrosis. The ureters can not be well-visualized. Stomach and bowel: Small bowel loops are normal in caliber no evidence of a small bowel obstruction. Colon appears unremarkable. No evidence for acute colitis or acute diverticulitis. Appendix: The appendix can not be visualized. No definitive evidence of acute appendicitis. Intraperitoneal space: No significant peritoneal free fluid. No free peritoneal air. There is mild stranding within the central mesenteric fat adjacent to central proximal jejunal small bowel loops. Findings may correspond to artifact or could potentially correspond to mesenteric panniculitis. Vasculature: The aorta is unremarkable . Lymph nodes: Calcified mediastinal and hilar lymph nodes suggest prior granulomatous exposure. There are no enlarged or suspicious intra-abdominal, pelvic or retroperitoneal lymph nodes. Urinary bladder: The bladder appears unremarkable. Reproductive: Uterus is unremarkable. No suspicious adnexal lesion seen. Slight asymmetric fullness of the left ovary may potentially be normal for this patient. No surrounding inflammatory change or fluid. Intrauterine device is in place within the endometrial canal. Bones/joints: No acute osseous abnormality. No acute fracture. No suspicious lytic or sclerotic bone lesion. Soft tissues: Small periumbilical hernia containing fat. Very mild diastasis recti. IMPRESSION: 1. Evaluation is significantly limited by attenuation artifact from the large amount of overlying soft tissue. 2. Question minimal stranding within the peripancreatic fat adjacent to the head of the pancreas. This could correspond to artifact or changes of mild pancreatitis. Please correlate clinically with any elevation of pancreatic enzymes. 3. Mild haziness and stranding within the posterior central mesenteric fat adjacent to jejunal small bowel loops. There is question of minimal associated small bowel thickening. This extends to the margin of the bifurcation of the infrarenal abdominal aorta and inferior vena cava. Evaluation here is limited on this exam. Findings could correspond to changes of enteritis or mesenteric panniculitis. Changes associated with vasculitis are less likely. 4. No significant free fluid. 5. No evidence for acute colitis. No evidence of a bowel obstruction. 6. Hepatomegaly. Diffuse decreased density throughout the liver in keeping with hepatic steatosis.
[2025-04-27 14:12] VITALS: BP 177/106; PULSE 89; RESP 16; TEMP 37.2; O2SAT 96; BMI 68.3
--- NOTE | 2025-04-27 14:14 | [facility].EDGENADL ---
Discharge Plan Disposition Patient Disposition: Home, Self-Care Condition: Good Prescriptions Prescriptions: No Action scopolamine base 1 mg over 3 days patch 3 day 1 patch transdermal Q3D PRN (Reason: motion sickness) Qty: 10 0RF Vraylar 3 mg capsule 3 mg PO DAILY Qty: 90 1RF clonazepam [Klonopin] 0.5 mg tablet 0.5 mg PO BID PRN (Reason: anxiety) Qty: 15 0RF citalopram [Celexa] 20 mg tablet 20 mg PO DAILY Qty: 90 0RF ebjxaeazsuvades-leuikkrkh-YR [Bromfed DM] 2-30-10 mg/5 mL syrup 10 ml PO Q6H PRN (Reason: cold symptoms) Qty: 118 0RF fluticasone propionate 50 mcg/actuation spray,suspension 1 spray intranasal DAILY PRN (Reason: cold symptoms) Qty: 16 0RF Rx Instructions: administer into each nostril metformin 500 mg tablet See Rx Instructions .ROUTE .COMPLEX Qty: 90 2RF Dose Instruction: Take 1 tablet by mouth once daily Rx Instructions: Take 1 tablet by mouth once daily cholecalciferol (vitamin D3) 50 mcg (2,000 unit) capsule 50 mcg PO DAILY Qty: 30 4RF bupropion HCl 150 mg tablet extended release 24 hr See Rx Instructions .ROUTE .COMPLEX Qty: 90 1RF Dose Instruction: Take 1 tablet by mouth once daily Rx Instructions: Take 1 tablet by mouth once daily topiramate 50 mg tablet See Rx Instructions .ROUTE .COMPLEX Qty: 90 1RF Dose Instruction: TAKE 1 TABLET BY MOUTH AT BEDTIME NIGHTLY Rx Instructions: TAKE 1 TABLET BY MOUTH AT BEDTIME NIGHTLY cetirizine 10 mg tablet See Rx Instructions .ROUTE .COMPLEX Qty: 90 0RF Dose Instruction: Take 1 tablet by mouth once daily Rx Instructions: Take 1 tablet by mouth once daily Referrals Follow up/Referrals: Nelly Jimenez APRN [Primary Care Provider, Family Practice] - See instructions Activity Restrictions/Add. Instructions Additional Instructions/Restrictions: Follow-up with OB as scheduled on Saturday. Return to the emergency department for any acute or worsening abdominal pain fevers or migration to right lower quadrant. Otherwise follow-up with your primary care provider. Clinical Impressions Clinical Impression: Abdominal pain Instructions Patient Instructions: DI for Acute Abdominal Pain Print Language Print Language: Montenegrin Discharge ED Provider: Camden Drake General Adult HPI <Camden Drake MD - Last Filed: 04/27/25 15:23> General Chief complaint: Abdominal Pain Stated complaint: uterus pain Time Seen by Provider: 04/27/25 14:03 History of Present Illness HPI narrative: Ana Akins is a 39-year-old female with a history of obesity, section who presents to the emergency department for complaints of abdominal pain. Patient states that starting on Saturday, she developed sharp intermittent lower abdominal pain in her uterus . She states that at that time, she had a few clots in her vagina after wiping. She denies any dysuria or hematuria. she states that she has a hormonal IUD in place. She denies any nausea, vomiting. She states that subjectively she had chills yesterday but did not take her temperature and does not know if she had a fever. She states that over the weekend she seemed to be doing well but has had recurrence of this pain this morning that was initially 6 out of 10. She took Tylenol and is now a 2 out of 10. She denies any diarrhea. Patient states that she also had an episode where she had some clear vaginal discharge is not sure if it was urine. Related Data Previous Rx's ?Medication ?Instructions ?Recorded cholecalciferol (vitamin D3) 50 50 mcg PO DAILY #30 caps 04/24/24 mcg (2,000 unit) capsule metformin 500 mg tablet See Rx Instructions .Route 09/24/24 .COMPLEX #90 tabs bupropion HCl 150 mg 24 hr tablet, See Rx Instructions .Route 11/16/24 extended release .COMPLEX #90 tabs topiramate 50 mg tablet See Rx Instructions .Route 12/18/24 .COMPLEX #90 tabs scopolamine base 1 mg over 3 days 1 patch transdermal Q3D PRN motion 12/21/24 transdermal patch sickness #10 ea cariprazine 3 mg capsule (Vraylar) 3 mg PO DAILY #90 caps 01/13/25 citalopram 20 mg tablet (Celexa) 20 mg PO DAILY #90 tabs 01/13/25 clonazepam 0.5 mg tablet (Klonopin) 0.5 mg PO BID PRN anxiety #15 tabs 01/13/25 gskwlzbiyaorikx-lebcitcegruebuu-AP 10 ml PO Q6H PRN cold symptoms 01/14/25 2 mg-30 mg-10 mg/5 mL oral syrup #118 mL (Bromfed DM) fluticasone propionate 50 1 spray intranasal DAILY PRN cold 01/14/25 mcg/actuation nasal symptoms #16 grams spray,suspension cetirizine 10 mg tablet See Rx Instructions .Route 02/08/25 .COMPLEX #90 tabs Allergies Allergy/AdvReac Type Severity Reaction Status Date / Time No Known Allergies Allergy Verified 01/14/25 14:26 PFS <Camden Drake MD - Last Filed: 04/27/25 15:23> PFS Disclaimer: The information contained in this section may have been updated after the patient was seen, as this information can be updated by other users. 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 Have you lived/traveled outside [place] in past 30 days?: No Contact w/someone who lives/traveled outside US past 30 days?: No Exposure to someone with infectious disease in past 14 days?: No Do you have a fever (greater than 100.4 F or 38 C)?: No Have you tested positive for COVID-19?: No Exposed to someone with COVID-19 in past 14 days?: No Do you have a sore throat?: No Do you have a cough?: No Do you have any weakness?: No Do you have any diarrhea?: No Are you experiencing any unusual bleeding?: No Do you have any muscle aches/pain?: No Do you have any abdominal pain?: No Are you experiencing loss of taste or smell?: No Other Medical History Have you received the Flu Vaccine for this season: No Have you received the Pneumonia Vaccine: No <Camden Drake MD - Last Filed: 04/27/25 15:23> ROS Obtained: Yes Systems reviewed as appropriate & no additional complaints except as documented Physical Exam <Camden Drake MD - Last Filed: 04/27/25 15:23> General General appearance: alert and in no apparent distress Head Head exam: atraumatic Eye Eye exam: Present normal appearance ENT ENT exam: Present normal external ear exam Neck Neck exam: Present full ROM Chest Chest inspection: Present symmetric chest wall rise Respiratory Respiratory exam: Present normal lung sounds bilaterally; Absent respiratory distress Cardiovascular Cardiovascular exam: Present regular rate and normal rhythm Abdominal Exam Abdominal exam: Present soft and tenderness (Suprapubic, right lower quadrant and right upper quadrant. More focally tender in the right upper quadrant.); Absent guarding or rigidity Extremities Exam Extremities exam: Present normal inspection Back Exam Back exam: Present normal inspection Neurological Exam Neurological exam: Present alert and oriented X3 Psychiatric Psychiatric exam: Present normal affect Skin Skin exam: Present warm and dry Medical Decision Making <Camden Drake MD - Last Filed: 04/27/25 15:23> Medical Records Screening: Per USPSTF and CDC recommendations, given the prevalence of disease in our region, it is our hospital?s policy to screen for HIV and viral Hepatitis for all patients aged 18 and over and those with ongoing risk factors. [place] Inquiry Pt receiving controlled substance: No Vital Signs: 04/27/25 14:08 04/27/25 14:12 04/27/25 19:48 Temperature 98.9 F 98.4 F Temperature Source Oral Oral Pulse Rate 91 H 89 Pulse Rate [Right Radial] 89 Respiratory Rate 16 21 Blood Pressure 177/106 H 143/97 H Blood Pressure [Right Arm] 177/106 H Blood Pressure Mean [Right Arm] 129 Blood Pressure Source Automatic Cuff Blood Pressure Source [Right Arm] Automatic Cuff Blood Pressure Position Sitting Blood Pressure Position [Right Arm] Supine 02 Sat by Pulse Oximetry 92 L 96 Oxygen Delivery Method Room Air Room Air Lab Data Lab Results 04/27/25 14:10: Urine Color Yellow, Urine Appearance Clear, Urine pH 6.0, Ur Specific [place] >= 1.030, Urine Protein Negative, Urine Glucose (UA) Negative, Urine Ketones Negative, Urine Blood Trace-i, Urine Nitrate Negative, Urine Bilirubin Negative, Urine Urobilinogen 0.2, Ur Leukocyte Esterase Negative, Urine RBC None, Urine WBC Occasional, Ur Squamous Epith Cells Occasional, Urine Bacteria Trace 04/27/25 14:25: WBC 11.6 H, RBC 4.69, Hgb 13.7, Hct 40.7, MCV 86.8, MCH 29.2, MCHC 33.7, RDW 14.3, Plt Count 262, MPV 9.8, Neut % (Auto) 61.6, Lymph % (Auto) 28.5, Clay % (Auto) 6.1, Eos % (Auto) 1.4, Baso % (Auto) 0.8, Neut # (Auto) 7.1, Lymph # (Auto) 3.3, Clay # (Auto) 0.7, Eos # (Auto) 0.2, Baso # (Auto) 0.1, Sodium 139, Potassium 4.0, Chloride 105, Carbon Dioxide 25, Anion Gap 13.0, BUN 13, Creatinine 0.90, Estimated Creat Clear 79, Estimated GFR 70, Est GFR ( Amer) 84, Glucose 79, Calcium 9.2, Total Bilirubin 0.6, AST 27, ALT 33, Alkaline Phosphatase 92, C-Reactive Protein 19.6 H, Total Protein 7.2, Albumin 4.0, Globulin 3.2, Albumin/Globulin Ratio 1.3, Lipase 65, Serum HCG, Qual Negative, HCV Ab TYRESE w/Rflx PCR Qn Negative, HIV Ag/Ab Combo Qual Negative 04/27/25 14:25 04/27/25 14:25 Orders (Tests/Meds): ED MEDICATIONS Discontinued Medications Generic Name Dose Route Start Last Admin Trade Name Freq PRN Reason Stop Dose Admin Iopamidol 75 ml 04/27/25 15:17 04/27/25 15:18 Iopamidol-370 (76%);100ml Bottle IV 04/27/25 15:18 75 ml ONCE ONE Administration Ketorolac Tromethamine 15 mg 04/27/25 14:11 04/27/25 14:31 Ketorolac 15mg/Ml Vial IV 04/27/25 14:12 15 mg ONCE ONE Administration Sodium Chloride 10 ml 04/27/25 15:17 04/27/25 15:18 Sodium Chloride 0.9% 10ml Syr (Rad Only) IV 05/27/25 15:16 10 ml NEEDED PRN Administration Maintain IV Site ORDERS Category Date Time Status CT abdomen pelvis w con Stat Cat Scan 04/27/25 14:11 Completed US transvaginal Stat Exams 04/27/25 16:42 Completed CBC w/Auto Diff [Complete Blood Count Auto Diff] Stat Lab 04/27/25 14:25 Completed CMP [Comprehensive Metabolic Panel] Stat Lab 04/27/25 14:25 Completed CRP [C-Reactive Protein] Stat Lab 04/27/25 14:25 Completed HIV Combo Stat Lab 04/27/25 14:25 Completed Hepatitis C Ab Qual. W/ RFX Stat Lab 04/27/25 14:25 Completed Lipase Stat Lab 04/27/25 14:25 Completed Serum [HCG Qualitative, Serum] Stat Lab 04/27/25 14:25 Completed UA [Urinalysis and Microscopic] Stat Lab 04/27/25 14:10 Completed Urine Chlam/Gono/Trich ([facility]) Stat Lab 04/27/25 14:10 Received Medical Decision Narrative: Ana Akins is a 39-year-old female with a history of obesity, section who presents to the emergency department for complaints of abdominal pain. Patient states that starting on Saturday, she developed sharp intermittent lower abdominal pain in her uterus . She states that at that time, she had a few clots in her vagina after wiping. She denies any dysuria or hematuria. she states that she has a hormonal IUD in place. She denies any nausea, vomiting. She states that subjectively she had chills yesterday but did not take her temperature and does not know if she had a fever. She states that over the weekend she seemed to be doing well but has had recurrence of this pain this morning that was initially 6 out of 10. She took Tylenol and is now a 2 out of 10. She denies any diarrhea. Patient states that she also had an episode where she had some clear vaginal discharge is not sure if it was urine. On arrival, patient is hemodynamically stable, no acute respiratory distress, breathing comfortably on room air. Physical exam, stated above, revealed a nontoxic-appearing female in no respiratory distress. She appears somewhat uncomfortable. She has tenderness in the suprapubic, right lower quadrant and right upper quadrant. She is more focally tender in the right upper quadrant. Differential diagnosis includes, but is not limited to: UTI, ectopic , appendicitis, acute cholecystitis, choledocholithiasis, STI, among others. The most morbid conditions were considered and workup was based on these. Workup in the emergency department included: Urinalysis, urine chlamydia, gonorrhea, trichomonas, lipase, serum test, CMP, CBC with differential, CRP. If test negative, will administer 50 mg of IV Toradol and obtain CT abdomen pelvis with IV contrast. I feel like right upper quadrant ultrasound would be significantly limited secondary to patient's body habitus. Will start with CT imaging at this time. At this time, patient has negative test, urinalysis without evidence of infection. She has trace amount of blood. Trace bacteria. CBC shows mild leukocytosis of 11.6 without anemia. Platelets within normal limits. Electrolytes pending. No SHIVANI. Liver enzymes and bilirubin within normal limits. The remainder of her workup is pending at this time. Patient's care transferred to the oncoming physician, Dr. Stuart, pending completion of her workup. <Gabi Stuart, DO - Last Filed: 04/27/25 21:19> Vital Signs: 04/27/25 14:08 04/27/25 14:12 04/27/25 19:48 Temperature 98.9 F 98.4 F Temperature Source Oral Oral Pulse Rate 91 H 89 Pulse Rate [Right Radial] 89 Respiratory Rate 16 21 Blood Pressure 177/106 H 143/97 H Blood Pressure [Right Arm] 177/106 H Blood Pressure Mean [Right Arm] 129 Blood Pressure Source Automatic Cuff Blood Pressure Source [Right Arm] Automatic Cuff Blood Pressure Position Sitting Blood Pressure Position [Right Arm] Supine 02 Sat by Pulse Oximetry 92 L 96 Oxygen Delivery Method Room Air Room Air Lab Data Lab results reviewed: Yes I reviewed the patient's lab results. Lab Results 04/27/25 14:10: Urine Color Yellow, Urine Appearance Clear, Urine pH 6.0, Ur Specific [place] >= 1.030, Urine Protein Negative, Urine Glucose (UA) Negative, Urine Ketones Negative, Urine Blood Trace-i, Urine Nitrate Negative, Urine Bilirubin Negative, Urine Urobilinogen 0.2, Ur Leukocyte Esterase Negative, Urine RBC None, Urine WBC Occasional, Ur Squamous Epith Cells Occasional, Urine Bacteria Trace 04/27/25 14:25: WBC 11.6 H, RBC 4.69, Hgb 13.7, Hct 40.7, MCV 86.8, MCH 29.2, MCHC 33.7, RDW 14.3, Plt Count 262, MPV 9.8, Neut % (Auto) 61.6, Lymph % (Auto) 28.5, Clay % (Auto) 6.1, Eos % (Auto) 1.4, Baso % (Auto) 0.8, Neut # (Auto) 7.1, Lymph # (Auto) 3.3, Clay # (Auto) 0.7, Eos # (Auto) 0.2, Baso # (Auto) 0.1, Sodium 139, Potassium 4.0, Chloride 105, Carbon Dioxide 25, Anion Gap 13.0, BUN 13, Creatinine 0.90, Estimated Creat Clear 79, Estimated GFR 70, Est GFR ( Amer) 84, Glucose 79, Calcium 9.2, Total Bilirubin 0.6, AST 27, ALT 33, Alkaline Phosphatase 92, C-Reactive Protein 19.6 H, Total Protein 7.2, Albumin 4.0, Globulin 3.2, Albumin/Globulin Ratio 1.3, Lipase 65, Serum HCG, Qual Negative, HCV Ab TYRESE w/Rflx PCR Qn Negative, HIV Ag/Ab Combo Qual Negative Orders (Tests/Meds): ED MEDICATIONS Discontinued Medications Generic Name Dose Route Start Last Admin Trade Name Freq PRN Reason Stop Dose Admin Iopamidol 75 ml 04/27/25 15:17 04/27/25 15:18 Iopamidol-370 (76%);100ml Bottle IV 04/27/25 15:18 75 ml ONCE ONE Administration Ketorolac Tromethamine 15 mg 04/27/25 14:11 04/27/25 14:31 Ketorolac 15mg/Ml Vial IV 04/27/25 14:12 15 mg ONCE ONE Administration Sodium Chloride 10 ml 04/27/25 15:17 04/27/25 15:18 Sodium Chloride 0.9% 10ml Syr (Rad Only) IV 05/27/25 15:16 10 ml NEEDED PRN Administration Maintain IV Site ORDERS Category Date Time Status CT abdomen pelvis w con Stat Cat Scan 04/27/25 14:11 Completed US transvaginal Stat Exams 04/27/25 16:42 Completed CBC w/Auto Diff [Complete Blood Count Auto Diff] Stat Lab 04/27/25 14:25 Completed CMP [Comprehensive Metabolic Panel] Stat Lab 04/27/25 14:25 Completed CRP [C-Reactive Protein] Stat Lab 04/27/25 14:25 Completed HIV Combo Stat Lab 04/27/25 14:25 Completed Hepatitis C Ab Qual. W/ RFX Stat Lab 04/27/25 14:25 Completed Lipase Stat Lab 04/27/25 14:25 Completed Serum [HCG Qualitative, Serum] Stat Lab 04/27/25 14:25 Completed UA [Urinalysis and Microscopic] Stat Lab 04/27/25 14:10 Completed Urine Chlam/Gono/Trich ([facility]) Stat Lab 04/27/25 14:10 Received Medical Decision Narrative: Ana Akins is a 39-year-old female with a history of obesity, section who presents to the emergency department for complaints of abdominal pain. Patient states that starting on Saturday, she developed sharp intermittent lower abdominal pain in her uterus . She states that at that time, she had a few clots in her vagina after wiping. She denies any dysuria or hematuria. she states that she has a hormonal IUD in place. She denies any nausea, vomiting. She states that subjectively she had chills yesterday but did not take her temperature and does not know if she had a fever. She states that over the weekend she seemed to be doing well but has had recurrence of this pain this morning that was initially 6 out of 10. She took Tylenol and is now a 2 out of 10. She denies any diarrhea. Patient states that she also had an episode where she had some clear vaginal discharge is not sure if it was urine. On arrival, patient is hemodynamically stable, no acute respiratory distress, breathing comfortably on room air. Physical exam, stated above, revealed a nontoxic-appearing female in no respiratory distress. She appears somewhat uncomfortable. She has tenderness in the suprapubic, right lower quadrant and right upper quadrant. She is more focally tender in the right upper quadrant. Differential diagnosis includes, but is not limited to: UTI, ectopic , appendicitis, acute cholecystitis, choledocholithiasis, STI, among others. The most morbid conditions were considered and workup was based on these. Workup in the emergency department included: Urinalysis, urine chlamydia, gonorrhea, trichomonas, lipase, serum test, CMP, CBC with differential, CRP. If test negative, will administer 50 mg of IV Toradol and obtain CT abdomen pelvis with IV contrast. I feel like right upper quadrant ultrasound would be significantly limited secondary to patient's body habitus. Will start with CT imaging at this time. At this time, patient has negative test, urinalysis without evidence of infection. She has trace amount of blood. Trace bacteria. CBC shows mild leukocytosis of 11.6 without anemia. Platelets within normal limits. Electrolytes pending. No SHIVANI. Liver enzymes and bilirubin within normal limits. The remainder of her workup is pending at this time. Patient's care transferred to the oncoming physician, Dr. Stuart, pending completion of her workup. Gabi Stuart, DO Patient CT scan did not show any acute findings. Patient did continue to have some intermittent right lower quadrant abdominal pain therefore ultrasound was obtained to rule out ovarian torsion. Patient's ultrasound showed no acute findings. At this time, patient does have follow-up with OB on Saturday. I recommended that patient keep this appointment. Patient was given return precautions if she had worsening right lower quadrant abdominal pain, had development of fevers or her symptoms were to be return or get persistent. Patient's pain was completely resolved at my evaluation prior to discharge. Critical Care <Camden Drake MD - Last Filed: 04/27/25 15:23> Critical Care Time Critical Care Time: No
[2025-04-27 14:23] LABS: Microscopic, Urine URINE MICROSCOPIC (MICROSCOPIC)
[2025-04-27 14:31] LABS: Bilirubin,Urine Negative (Negative); Color,Urine YELLOW (Yellow); Glucose,Urine (UA) Negative (Negative); Ketones,Urine Negative (Negative); Leukocyte Esterase,Urine Negative (Negative); PH,Urine 6.0 (5.0-8.5); Protein,Urine Negative (Negative); Specific Gravity, Urine >= 1.030 (1.005-1.030); Urobilinogen,Urine 0.2 EU/dl (0.2)
[2025-04-27] MEDS: KETOROLAC 15MG/ML VIAL 15 MG IV (14:31)
[2025-04-27 14:32] LABS: Hematocrit 40.7 % (37.0-47.0); Hemoglobin 13.7 g/dL (12.2-16.2); Immature Granulocytes % 1.6 %; Mean Corpuscular HGB Conc 33.7 g/dL (31.8-35.4); Mean Corpuscular Hemoglobin 29.2 pg (27.0-31.2); Mean Corpuscular Volume 86.8 fl (81-99); Nucleated Red Blood Cells % 0 %; Platelet Count 262 K/mm3 (142-424); Red Blood Count 4.69 M/mm3 (4.20-5.40); Red Cell Distribution Width-SD 44.7 fL; White Blood Count 11.6 K/mm3 (4.8-10.8)
[2025-04-27 14:46] LABS: Bacteria,Urine Trace /lpf; Squamous Epithelial Cell,Urine Occasional #/hpf (0-5); WBC,Urine Occasional #/hpf (0-3)
[2025-04-27 14:46] LABS: HCG Qualitative, Serum Negative (Negative)
[2025-04-27 15:07] LABS: Albumin Level 4.0 g/dl (3.5-5.0); Albumin/Globulin Ratio 1.3 (1.1-1.8); Alkaline Phosphatase 92 U/L (38-126); Bilirubin,Total 0.6 mg/dl (0.2-1.3); Blood Urea Nitrogen 13 mg/dl (7-17); Carbon Dioxide 25 mmol/L (22.0-30.0); Creatinine Clearance Estimated 79 mL/min (50-200); Creatinine,Serum 0.90 mg/dl (0.52-1.04); Estimated Glomerular Filt Rate 70 ml/min (>60); GFR (African American) 84 ML/MIN (>60); Globulin 3.2 g/dL (1.3-3.2); Total Protein,Serum 7.2 g/dl (6.3-8.2)
[2025-04-27 15:14] LABS: Alanine Aminotransferase 33 U/L (12-78); Anion Gap 13.0 mEq/L (5-15); Aspartate Amino Transferase 27 U/L (14-36); C-Reactive Protein 19.6 mg/L (0-4); Chloride 105 mmol/L (98-107); Lipase 65 U/L (23-300); Potassium 4.0 mmoL/L (3.5-5.1); Sodium 139 mmol/L (136-145)
[2025-04-27] MEDS: IOPAMIDOL-370 (76%);100ML BOTTLE 75 ML IV (15:18)
[2025-04-27] MEDS: SODIUM CHLORIDE 0.9% 10ML SYR (RAD ONLY) 10 ML IV (15:18)
[2025-04-27 16:22] LABS: Hepatitis C Ab Qual. W/ RFX NEGATIVE (Negative)
[2025-04-27 16:23] LABS: Calcium 9.2 mg/dl (8.4-10.2); Glucose 79 mg/dl (74-100)
--- NOTE | 2025-04-27 16:42 | US_ITS ---
PROCEDURE INFORMATION: Exam: US Pelvis, Transvaginal, Non-Obstetric Exam date and time: 04/27/2025 5:21 PM Age: 39 years old Clinical indication: Pelvic pain; Additional info: R/O torsion, intermittent rlq pain TECHNIQUE: Imaging protocol: Real-time transvaginal pelvic (non-obstetric) ultrasound with image documentation. Transvaginal imaging was used for better evaluation of the endometrium, adnexa, and/or cervix. COMPARISON: CT ABDOMEN PELVIS W CON 04/27/2025 3:18 PM FINDINGS: Uterus: Evaluation is significantly limited by patient body habitus and position of the uterus and ovaries. There is fluid within the endocervical canal which is nonspecific. Uterus measures approximately 7.8 x 5.0 x 4.9 cm. No discrete myometrial mass. Endometrium was poorly visualized and can not be adequately evaluated. Intrauterine device does appear to be in place and centrally located within the endometrial canal. Visualization is limited. Right ovary/adnexa: Right ovary is difficult to visualized. Right ovary measures 3.3 x 1.5 x 2.0 cm. Vascular flow is documented within the right ovary. Doppler venous waveform is present within the right ovary. Left ovary/adnexa: Visualization of the left ovary is limited. Left ovary measures 4.5 x 4.3 x 4.4 cm. Central area of decreased density within the left ovary could potentially correspond to a cyst. Flow is documented along the periphery of the presumed left ovary. Arterial and venous waveform is present along the periphery of the left ovary. Potential cyst is present within the left ovary measuring up to 3.6 cm. This is not well evaluated. Urinary bladder: Not assessed on this exam. Intraperitoneal space: No free fluid deep within the pelvis. IMPRESSION: Very limited ultrasound of the pelvis. Limited visualization of the uterus and ovaries. Uterus appears grossly unremarkable. Intrauterine device appears to be in place and centrally located within the endometrial canal. Visualization is limited. Left ovary is asymmetrically enlarged compared to the right. Potential cyst could be present within the left ovary although visualization is limited. Vascular flow is documented along the periphery of the right and left ovary. No definitive evidence of torsion. No free fluid.
--- NOTE | 2025-04-27 17:43 | PC.NURSE ---
ultrasound at bedside
[2025-04-27 19:48] VITALS: BP 143/97; PULSE 89; RESP 21; TEMP 36.9; O2SAT 98
== END 2025-04-27 19:53 | disposition home or self-care (01) ==
PROVIDERS: Emergency Provider Student in an Organized Health Care Education/Training Program; PCP Family Medicine
DX: R10.31 Right lower quadrant pain (principal); Z97.5 Presence of (intrauterine) contraceptive device; F32.9 Major depressive disorder, single episode, unspecified; F17.200 Nicotine dependence, unspecified, uncomplicated; D72.829 Elevated white blood cell count, unspecified; Z79.899 Other long term (current) drug therapy
CPT/HCPCS: 74177; 76830; 80053; 81001; 83690; 84703; 85025; 86140; 86803; 87389; 87491; 87591; 87661; 96374; 99285; J1885; Q9967